=== PATIENT | female | born 1955 | race Caucasian/White ===

== ENCOUNTER → 2018-12-02 07:23 | Outpatient (CLI) | payer OTHER, MEDICAID, SELFPAY ==
[2018-12-02 08:19] LABS: Alanine Aminotransferase 22 IU/L (9-52); Albumin 4.3 g/dL (3.5-5.0); Albumin Globulin Ratio 1.4 (1.0-2.8); Alkaline Phosphatase 61 U/L (38-126); Aspartate Aminotransferase 24 IU/L (14-36); BUN Creatinine Ratio 16.7 (6-22); Bilirubin Total 0.8 mg/dL (0.2-1.3); Blood Urea Nitrogen 10 mg/dL (7-17); Carbon Dioxide 29 mmol/L (22-32); Chloride 101 mmol/L (98-107); Cholesterol 156 mg/dL (140-199); Estimated Glomerular Filt Rate > 60.0 mL/min (>60); Globulin 3.1 g/dL (1.7-4.1); Glucose 95 mg/dL (80-110); HDL Cholesterol 58 mg/dL (40-60); HEMOLYSIS < 15 (0-50); Hematocrit 37.8 % (36-46); Hemoglobin 12.7 g/dL (12.0-16.0); LDL Cholesterol Calculated 89 mg/dL (<100); Mean Corpuscular HGB Conc 33.6 % (30-36); Mean Corpuscular Volume 86.5 fL (80-100); Platelet Count 354 X10^3/uL (150-400); Potassium 4.1 mmol/L (3.4-5.1); Red Blood Cell Count 4.38 X10^6/uL (4.0-5.2); Red Cell Distribution Width 13.9 % (11.6-14.8); Sodium 139 mmol/L (137-145); Total Protein 7.4 g/dL (6.3-8.2); Triglycerides 46 mg/dL (35-150); White Blood Cell Count 6.8 X10^3/uL (4.5-11.0)
[2018-12-02 09:00] LABS: TSH w/ Reflex to FT4 2.21 uIU/mL (0.47-4.68)
[2018-12-02 09:05] LABS: Neutrophils Absolute Manual 3060 /uL (3000-5900); Total Cells Counted 100
[2018-12-02 09:07] LABS: Anisocytosis 1+; Hypochromasia 1+; Poikilocytosis 1+
== END ==
PROVIDERS: PCP Nurse Practitioner; Visit Provider Nurse Practitioner
DX: R00.2 Palpitations (principal); Z00.00 Encounter for general adult medical examination without abnormal findings
CPT/HCPCS: 36415; 80053; 80061; 84443; 85025

== ENCOUNTER → 2018-12-03 10:05 | Outpatient (CLI) | payer OTHER, MEDICAID, SELFPAY ==
[2018-12-03 11:03] LABS: Hematocrit 38.8 % (36-46); Hemoglobin 12.8 g/dL (12.0-16.0); Mean Corpuscular HGB Conc 33.1 % (30-36); Mean Corpuscular Hemoglobin 28.5 PG (26-34); Mean Corpuscular Volume 86.1 fL (80-100); Platelet Count 378 X10^3/uL (150-400); Red Cell Distribution Width 13.7 % (11.6-14.8); White Blood Cell Count 7.1 X10^3/uL (4.5-11.0)
[2018-12-03 11:28] LABS: Monotest Negative (Negative)
[2018-12-03 11:32] LABS: Neutrophils Absolute Manual 4970 /uL (3000-5900); RBC Morphology Normal Morphology; Total Cells Counted 100
== END ==
PROVIDERS: PCP Nurse Practitioner; Visit Provider Nurse Practitioner
DX: R00.2 Palpitations (principal); R53.83 Other fatigue; R42 Dizziness and giddiness
CPT/HCPCS: 36415; 85025; 86318

== ENCOUNTER → 2019-03-07 11:31 | Outpatient (CLI) | payer OTHER, MEDICAID, SELFPAY ==
[2019-03-09 14:41] LABS: Anti Thyroglobulin Antibody < 1 IU/mL (< 2); Thyroid Peroxidase Antibodies 1 IU/mL (< 9)
== END ==
PROVIDERS: PCP Nurse Practitioner; Visit Provider Nurse Practitioner
DX: G47.00 Insomnia, unspecified (principal); R00.2 Palpitations; R55 Syncope and collapse
CPT/HCPCS: 36415; 86376; 86800

== ENCOUNTER → 2019-03-29 09:12 | Outpatient (CLI) | payer OTHER, MEDICAID, SELFPAY ==
--- NOTE | 2019-03-29 | DI.ECHO.S_ITS ---
[facility] +---------+ : : [address] : [address] : : : : [id number] : : : : Phone: [phone]+ Echocardiogram Report + + :Name: ALIYA SMITH Study Date: 03/29/2019 Height: 63 in : :[facility] Weight: 127 lb : : Gender: Female BSA: 1.6 m2 : :: 1955 Age: 63 yrs BP: 110/80 mmHg: :Reason For Study: VTACH : : Performed By: Bereket Sebastian : :Referring: AUBREY MOLINA : + + Interpretation Summary 1) Normal left ventricular thickness, size, wall motion, and systolic function (EF 55-60%). 2) Normal right ventricular size with low normal function. 3) No signifiant valvular abnormalities. 4) No prior Echo available for comparison. Procedure: A two-dimensional transthoracic echocardiogram with color flow and Doppler was performed. The study quality was technically good. There is no prior echocardiogram noted for this patient. The patient was in normal sinus rhythm during the exam. The patient had occasional PVCs during the exam. Left Ventricle: The left ventricle is normal in size. There is normal left ventricular wall thickness. The ejection fraction is estimated to be 55-60%. Left ventricular systolic function is normal. There are no focal wall motion abnormalities. Right Ventricle: The right ventricle is normal size. Right ventricular systolic function is at the lower limits of normal. Atria: The left atrial size is normal. The right atrium is mildly dilated. The interatrial septum is intact with no evidence for an atrial septal defect. Mitral Valve: The mitral valve is normal in structure and function. There is mild mitral regurgitation. Aortic Valve: The aortic valve is trileaflet. The aortic valve opens well. There is no aortic valve stenosis. No aortic regurgitation is present. Tricuspid Valve: The tricuspid valve is normal in structure and function. There is mild tricuspid regurgitation. The right ventricular systolic pressure is estimated to be at least 24 mmHg based on an estimated right atrial pressure of 3 mm Hg. Pulmonic Valve: The pulmonic valve is normal in structure and function. There is trace pulmonic regurgitation. Great Vessels: The aortic root is normal size. The dimensions of the ascending aorta are normal. The pulmonary artery is normal size. The IVC is of normal diameter and collapses greater than 50% with a sniff. This suggests a low right atrial pressure of 3 mm Hg. Pericardium/ Pleura There is no pericardial effusion. There is no pleural effusion. MMode/2D Measurements & Calculations LVIDd: 4.6 cm LVOT diam: 2.3 cm LVIDs: 3.1 cm Ao root diam: 3.7 cm FS: 33.1 % Aortic Jxn: 2.8 cm EPSS: 0.62 cm asc Aorta Diam: 3.2 cm IVSd: 0.72 cm Ao Arch Diam (Prox Trans): 2.8 cm LVPWd: 0.74 cm LV tilley. diameter/BSA (cm/m^2): 2.9 LV sys. diameter/BSA (cm/m^2): 1.9 LA dimension: 3.1 cm RA long axis: 4.8 cm LA A2 area: 19.6 cm2 RA area: 18.3 cm2 LA A4 area: 12.3 cm2 RA vol: 59.6 ml LA length (vol): 4.3 cm RA : 37.4 ml/m2 LA vol: 47.8 ml IVC diam: 1.6 cm LA vol index: 30.0 ml/m2 RVD1 (basal): 3.6 cm RVD2 (mid): 3.5 cm Doppler Measurements & Calculations Ao V2 max: 108.4 cm/sec LVOT Max Eric: 88.4 cm/sec Ao V2 mean: 76.9 cm/sec LV V1 max P.1 mmHg Ao max P.7 mmHg LV V1 VTI: 18.7 cm Ao mean P.6 mmHg KEVIN(I,D): 3.9 cm2 Ao V2 VTI: 20.0 cm KEVIN(V,D): 3.4 cm2 sev ratio: 0.93 KEVIN indexed to BSA (cm^2/m^2): 2.4 MV E max eric: 53.6 cm/sec TR max eric: 227.3 cm/sec MV A max eric: 60.6 cm/sec TR max P.7 mmHg MV E/A: 0.88 PA V2 max: 65.4 cm/sec Med Peak E' Eric: 6.3 cm/sec PA V2 mean: 44.9 cm/sec E/E' med: 8.5 PA mean P.90 mmHg Lat Peak E' Eric: 5.9 cm/sec PA pr(Accel): 39.1 mmHg E/E' lat: 9.1 PA Accel Time: 0.08 sec E/e' average: 8.8 MV dec time: 0.14 sec SV(LVOT): 78.2 ml Reading Physician:09:52 AM
== END ==
PROVIDERS: Family Provider Nurse Practitioner; PCP Nurse Practitioner; Visit Provider Internal Medicine Cardiovascular Disease
DX: I08.1 Rheumatic disorders of both mitral and tricuspid valves (principal); I47.2 Ventricular tachycardia
CPT/HCPCS: 93306

== ENCOUNTER → 2020-09-20 10:25 | Outpatient (CLI) | payer OTHER, MEDICAID, SELFPAY ==
[2020-09-20] MEDS: COVID-19 VACC, Ad26(JANSSEN)/PF 0.5 ML IM (10:32)
== END ==
PROVIDERS: Family Provider Nurse Practitioner; PCP Nurse Practitioner; Visit Provider Internal Medicine
DX: Z23 Encounter for immunization (principal)
CPT/HCPCS: 0031A; 91303

== ENCOUNTER → 2023-07-24 07:11 | Outpatient (CLI) | payer OTHER, SELFPAY ==
[2023-07-24 08:10] LABS: Add Manual Diff / Slide Review NO; Basophils Absolute Auto 100 /uL (0-100); Basophils Percent Auto 1.3 % (0-2); Eosinophils Absolute Auto 100 /uL (0-450); Eosinophils Percent Auto 1.9 % (2-4); Hematocrit 38.6 % (36-46); Hemoglobin 12.9 g/dL (12.0-16.0); Lymphocytes Absolute Auto 1500 /uL (1100-4500); Lymphocytes Percent Auto 22.6 % (25-40); Mean Corpuscular HGB Conc 33.4 % (30-36); Mean Corpuscular Hemoglobin 29.1 PG (26-34); Mean Corpuscular Volume 87.1 fL (80-100); Monocytes Absolute Auto 1000 /uL (0-900); Monocytes Percent Auto 14.4 % (3-14); Neutrophils Absolute Auto 4000 /uL (1500-7000); Neutrophils Percent Auto 59.8 % (50-75); Platelet Count 356 X10^3/uL (150-400); Red Blood Cell Count 4.43 X10^6/uL (4.0-5.2); Red Cell Distribution Width 13.2 % (11.6-14.8); White Blood Cell Count 6.7 X10^3/uL (4.5-11.0)
[2023-07-24 08:17] LABS: BUN Creatinine Ratio 12.1 (6-22); Blood Urea Nitrogen 8 mg/dL (7-17); Calcium 9.4 mg/dL (8.4-10.2); Carbon Dioxide 27 mmol/L (22-32); Chloride 98 mmol/L (98-107); Cholesterol 161 mg/dL (140-199); Estimated Glomerular Filt Rate > 60 mL/min (>60); Glucose 96 mg/dL (80-110); HDL Cholesterol 70 mg/dL (40-60); HEMOLYSIS < 15 (0-50); LDL Cholesterol Calculated 79 mg/dL (<100); Potassium 4.2 mmol/L (3.4-5.1); Sodium 134 mmol/L (137-145); Triglycerides 62 mg/dL (35-150)
== END ==
LOC: LAB 07:13
PROVIDERS: Family Provider Nurse Practitioner; PCP Family Medicine; Referring Provider Internal Medicine Cardiovascular Disease; Visit Provider Internal Medicine Cardiovascular Disease
DX: I47.20 Ventricular tachycardia, unspecified (principal); Z00.00 Encounter for general adult medical examination without abnormal findings
CPT/HCPCS: 36415; 80048; 80061; 83735; 85025

== ENCOUNTER → 2023-12-11 10:46 | Outpatient (CLI) | payer MEDICARE, SELFPAY ==
--- NOTE | 2023-12-11 10:47 | DI.RAD.S_ITS ---
PROCEDURE: XR DEXA AXIAL SKELETON INDICATIONS: bone density [facility]. FINDINGS: Lumbar Spine: Bone mineral density 0.922 g/cm2, T score -1.1. Prior DEXA was performed using dissimilar scan type or analysis method. Left Hip: Bone mineral density 0.666 g/cm2, T score -2.3. Prior DEXA was performed using dissimilar scan type or analysis method. Left Femoral Neck: Bone mineral density 0.605 g/cm2, T score -2.2. Right Hip: Bone mineral density 0.658 g/cm2, T score -2.3. Prior DEXA was performed using dissimilar scan type or analysis method. Right Femoral Neck: Bone mineral density 0.536 g/cm2, T score -2.8. Fracture Risk Calculation (when applicable): FRAX score not reported due to T-score less than -2.5. (T score greater or equal to -1.0 to: NORMAL) (T score from -1.1 to -2.4: OSTEOPENIA) (T score less than or equal to -2.5: OSTEOPOROSIS) IMPRESSION: By WHO criteria, patient has osteoporosis. Follow-up guidelines as follows: Osteoporosis: Consider a repeat DEXA and Vertebral Fracture Assessment (VFA) exam in 2 years or sooner if medically necessary, to reassess this patient's status. Osteopenia: Consider a repeat DEXA in 2-3 years to reassess this patient's status, or if there is a new clinical indication. Normal: Consider a repeat DEXA in 5 years or sooner, or if there is a new clinical indication. All treatment decisions require clinical judgment and consideration of individual patient factors, including patient preferences, comorbidities, previous drug use, risk factors not captured in the FRAX model (e.g., frailty, falls, vitamin D deficiency, increased bone turnover, interval significant decline in bone density ) and possible under- or over-estimation of fracture risk by FRAX. In addition, the NOF Guide recommends that FDA-approved medical therapies be considered in postmenopausal women and men age >= 50 years with a: * Hip or vertebral (clinical or morphometric) fracture * T-score of <=-2.5 at the spine or hip * Ten-year fracture probability by FRAX of >= 3% for hip fracture or >=20% for major osteoporotic fracture. People with diagnosed cases of osteoporosis or at high risk for fracture should have regular bone mineral density tests. For patients eligible for Medicare, routine testing is allowed once every 2 years. The testing frequency can be increased to one year for patients who have rapidly progressing disease, those who are receiving or discontinuing medical therapy to restore bone mass, or have additional risk factors. Approved by: Black Fuentes M.D. on 12/11/2023 at 12:48
== END ==
PROVIDERS: Family Provider Nurse Practitioner; PCP Family Medicine; Referring Provider Family Medicine; Visit Provider Family Medicine
DX: M81.0 Age-related osteoporosis without current pathological fracture (principal)
CPT/HCPCS: 77080